=== PATIENT | male | born 1975 | race African-American/Black ===

== ENCOUNTER 2020-07-17 15:46 | Emergency (ER) | payer SELFPAY ==
[~2020-07-17] VITALS: Ht 193 cm; Wt 82.0 kg
[2020-07-17] MEDS ORDERED: IBUPROFEN 600MG TABLET PO ONE (16:45)
[2020-07-17 17:03] VITALS: BP 141/81
== END 2020-07-17 17:05 | disposition home or self-care (01) ==
LOC: ER 15:46
DX: S39.012A Strain of muscle, fascia and tendon of lower back, initial encounter (principal); M25.512 Pain in left shoulder; V49.88XA Car occupant (driver) (passenger) injured in other specified transport accidents, initial encounter; Y93.89 Activity, other specified; Y92.89 Other specified places as the place of occurrence of the external cause; Y99.8 Other external cause status
CPT/HCPCS: 99282